=== PATIENT | female | born 1950 | race Caucasian/White ===

== ENCOUNTER 2024-11-10 23:48 | Inpatient (IN) | payer MEDICARE, BC ==
[~2024-11-10] VITALS: Ht 154.9 cm; Wt 51.3 kg
[2024-11-11] MEDS ORDERED: ONDANSETRON ODT 4 MG TAB.RAPDIS ONE (00:13)
[2024-11-11] MEDS: ONDANSETRON ODT 4 MG TAB.RAPDIS SL ONE (00:14)
[2024-11-11 01:09] LABS: BASOPHILS % (AUTO) 0.4 % (0.0-2.0); EOSINOPHILS # (AUTO) 0.1 K/uL (0.0-0.7); EOSINOPHILS % (AUTO) 0.7 % (0.0-7.0); HEMATOCRIT 33.7 % (31.2-41.9); HEMOGLOBIN 11.9 g/dL (10.9-14.3); LYMPHOCYTES % (AUTO) 13.8 % (20.5-51.5); MEAN CORPUSCULAR HEMOGLOBIN 31.5 uug (24.7-32.8); MEAN CORPUSCULAR HGB CONC 35 g/dL (32.3-35.6); MEAN CORPUSCULAR VOLUME 89.5 fL (75.5-95.3); MONOCYTES # (AUTO) 0.6 K/uL (0.1-1.30); MONOCYTES % (AUTO) 7.5 % (0.0-11.0); NEUTROPHILS # (AUTO) 5.8 K/uL (1.8-8.9); NEUTROPHILS % (AUTO) 77.6 % (38.5-71.5); PLATELET COUNT (AUTO) 420 K/uL (179-408); RED BLOOD CELL COUNT(AUTO) 3.76 MIL/uL (3.63-4.92); RED CELL DISTRIBUTION WIDTH 12.9 % (12.3-17.7); WHITE BLOOD COUNT (AUTO) 7.4 K/uL (3.8-11.8)
[2024-11-11 01:25] LABS: ALANINE AMINOTRANSFERASE 17 U/L (14-59); ALBUMIN 3.8 g/dL (3.4-5.0); ALKALINE PHOSPHATASE 80 U/L (50-136); ASPARTATE AMINOTRANSFERASE 10 U/L (15-37); BILIRUBIN,DIRECT 0.2 mg/dL (0.0-0.2); BILIRUBIN,TOTAL 1.2 mg/dL (0.2-1.0); CARBON DIOXIDE 28 mmol/L (21-32); CHLORIDE 96 mmol/L (98-107); CREATININE 0.9 mg/dL (0.6-1.3); GLUCOSE 100 mg/dL (74-106); POTASSIUM 3.6 mmol/L (3.5-5.1); SODIUM SERUM 131 mmol/L (136-145); TOTAL PROTEIN, SERUM 8.1 g/dL (6.4-8.2); UREA NITROGEN, BLOOD 21 mg/dL (7-18)
[2024-11-11] MEDS ORDERED: REMEDY ESSENTIAL ZINC PASTE 113 GM TP PRN (02:15)
[2024-11-11] MEDS ORDERED: MAGNESIUM HYDROXIDE 30 ML LIQUID UDC PO PRN (02:15)
[2024-11-11] MEDS ORDERED: ONDANSETRON 4 MG/2 ML VIAL IV PRN (02:15)
[2024-11-11 07:30] VITALS: BP 113/71; TEMP 97.5; O2SAT 98
[2024-11-11] MEDS: IV NS 1000 ML 1,000 ML IV PRN (07:41)
[2024-11-11] MEDS ORDERED: AMLO2.5T4 PO (09:48)
[2024-11-11] MEDS ORDERED: QUET25TA36 PO (09:48)
[2024-11-11 11:30] VITALS: BP 121/67; TEMP 97.9; O2SAT 98
[2024-11-11] MEDS: ACETAMINOPHEN 325 MG TABLET PO PRN (13:17)
[2024-11-11 15:33] VITALS: BP 127/70; TEMP 97.8; O2SAT 99
[2024-11-11] MEDS ORDERED: [UNRECOGNIZED DRUG - OTHER] PO (17:30)
[2024-11-11] MEDS ORDERED: LEVO125T8 PO (17:30)
[2024-11-11] MEDS ORDERED: [UNRECOGNIZED DRUG - CODE] TD (17:30)
[2024-11-11] MEDS: QUETIAPINE FUMARATE 25 MG TABLET PO SCH ×2 (19:01→21:29)
[2024-11-11 20:00] VITALS: BP 152/73; TEMP 97.4; O2SAT 95
[2024-11-12 00:11] VITALS: BP 124/69; TEMP 97.7; O2SAT 95
[2024-11-12 04:04] VITALS: BP 134/70; TEMP 97.4; O2SAT 97
[2024-11-12 06:43] LABS: BASOPHILS % (AUTO) 0.4 % (0.0-2.0); EOSINOPHILS % (AUTO) 0.8 % (0.0-7.0); LYMPHOCYTES # (AUTO) 0.8 K/uL (0.8-4.8); LYMPHOCYTES % (AUTO) 19.4 % (20.5-51.5); MEAN CORPUSCULAR HEMOGLOBIN 32.3 uug (24.7-32.8); MEAN CORPUSCULAR HGB CONC 36 g/dL (32.3-35.6); MEAN CORPUSCULAR VOLUME 90.2 fL (75.5-95.3); MONOCYTES # (AUTO) 0.5 K/uL (0.1-1.30); MONOCYTES % (AUTO) 10.6 % (0.0-11.0); NEUTROPHILS % (AUTO) 68.8 % (38.5-71.5); PLATELET COUNT (AUTO) 371 K/uL (179-408); RED BLOOD CELL COUNT(AUTO) 3.11 MIL/uL (3.63-4.92); RED CELL DISTRIBUTION WIDTH 12.6 % (12.3-17.7); WHITE BLOOD COUNT (AUTO) 4.3 K/uL (3.8-11.8)
[2024-11-12 07:08] LABS: CALCIUM 7.6 mg/dL (8.5-10.1); CARBON DIOXIDE 24 mmol/L (21-32); CHLORIDE 105 mmol/L (98-107); CREATININE 0.7 mg/dL (0.6-1.3); GLUCOSE 88 mg/dL (74-106); MAGNESIUM 1.6 mg/dL (1.8-2.4); PHOSPHOROUS 2.6 mg/dL (2.5-4.9); POTASSIUM 3.4 mmol/L (3.5-5.1); SODIUM SERUM 138 mmol/L (136-145); UREA NITROGEN, BLOOD 11 mg/dL (7-18)
[2024-11-12 07:21] LABS: DIFFERENTIAL COMMENT 1
[2024-11-12 07:52] LABS: *BILIRUBIN,URIN NEGATIVE (NEGATIVE); *BLOOD, URINE NEGATIVE (NEGATIVE); *CLARITY,URINE CLEAR (CLEAR); *COLOR,URINE YELLOW (YELLOW); *KETONES,URINE 1+ (NEGATIVE); *PROTEIN,URINE NEGATIVE (NEGATIVE); *UROBILINOGEN,URINE 0.2 E.U./dl (NORMAL); LEUKOCYTE ESTERASE ,URINE NEGATIVE (NEGATIVE); NITRITE, URINE NEGATIVE (NEGATIVE); UGLUCOSE NEGATIVE (NEGATIVE)
[2024-11-12 07:53] LABS: BACTERIA,URINE FEW /HPF (NONE SEEN); SQUAMOUS EPITHELIAL CELL,UR FEW /HPF (NONE SEEN); WBC,URINE 0-3 /HPF (0-3)
[2024-11-12 07:55] VITALS: BP 141/72; TEMP 97.7; O2SAT 96
[2024-11-12 11:06] VITALS: BP 142/72; TEMP 98.7; O2SAT 97
[2024-11-12] MEDS: MAGNESIUM OXIDE 400 MG TABLET PO ONE (11:26)
[2024-11-12] MEDS: POTASSIUM CHLORIDE 20 MEQ TAB.PRT.SR PO ONE (11:26)
[2024-11-12] MEDS: LACTULOSE 20 G/30 ML LIQUID UDC PO ONE (17:16)
[2024-11-12] MEDS: DOCUSATE SODIUM 100 MG CAPSULE PO SCH (17:19)
[2024-11-12] MEDS: MIRALAX 17 GM POWD.PACK PO SCH (17:19)
[2024-11-13 06:00] VITALS: BP 137/78; TEMP 97.6; O2SAT 99
[2024-11-13] MEDS ORDERED: LIOTHYRONINE SODIUM 5 MCG TABLET PO SCH (09:00)
[2024-11-13] MEDS: FAMOTIDINE 20 MG TABLET PO SCH (09:05)
[2024-11-13] MEDS: LEVOTHYROXINE SODIUM 125 MCG TABLET PO SCH (10:57)
[2024-11-13] MEDS: BISACODYL 10 MG SUPP.RECT RC ONE (10:58)
[2024-11-13] MEDS: LIOTHYRONINE PO SCH (11:00)
[2024-11-13] MEDS: [UNRECOGNIZED DRUG - OTHER] PO SCH (11:00)
[2024-11-13] MEDS ORDERED: QUETIAPINE FUMARATE 25 MG TABLET PO SCH (17:00)
[2024-11-14] MEDS ORDERED: AMLODIPINE 2.5 MG TABLET PO SCH (09:00)
[2024-11-14] MEDS ORDERED: QUET25TA PO (12:08)
== END 2024-11-13 15:18 | DRG 641 ==
LOC: ER 23:52 → TELE3 11-11 02:34 → MEDSURG3 11-12 09:50
PROVIDERS: ADMIT Nurse Practitioner Family; ATTEND Internal Medicine
DX: E86.0 Dehydration (principal); F05 Delirium due to known physiological condition; R55 Syncope and collapse; E87.1 Hypo-osmolality and hyponatremia; D75.839 Thrombocytosis, unspecified; Z91.51 Personal history of suicidal behavior; Z91.81 History of falling; F32.A Depression, unspecified; F41.9 Anxiety disorder, unspecified; K59.00 Constipation, unspecified; I10 Essential (primary) hypertension; G89.29 Other chronic pain; F43.10 Post-traumatic stress disorder, unspecified; Z66 Do not resuscitate
CPT/HCPCS: 36415; 71045; 74018; 82746; 83605; 83735; 84100; 84484; 85025; 85730; 93307; 93880; A4663; C1758; G0378; J7040; Q0162

== ENCOUNTER 2024-11-13 15:29 | Inpatient (IN) | payer MEDICARE, BC ==
[~2024-11-13] VITALS: Ht 154.9 cm; Wt 51.3 kg
[~2024-11-13 15:29] MED LIST: AMLO2.5T4 PO; LEVO125T8 PO; QUET25TA36 PO; [UNRECOGNIZED DRUG - CODE] TD; [UNRECOGNIZED DRUG - OTHER] PO
[2024-11-13 19:00] VITALS: BP 137/75; TEMP 98; O2SAT 97
[2024-11-13] MEDS: BLOOD SUGAR DIAGNOSTIC 1 EACH STRIP VI ONE (22:51)
[2024-11-13] MEDS ORDERED: MAG HYDROX/AL HYDROX/SIMETH 30 ML LIQUID UDC PO PRN (23:00)
[2024-11-13] MEDS ORDERED: MAGNESIUM HYDROXIDE 30 ML LIQUID UDC PO PRN (23:00)
[2024-11-13] MEDS ORDERED: LORAZEPAM 1 MG TABLET PO PRN (23:00)
[2024-11-13] MEDS ORDERED: TEMAZEPAM 7.5 MG CAPSULE PO PRN ×2 (23:00)
[2024-11-13] MEDS ORDERED: LORAZEPAM 0.5 MG TABLET PO PRN (23:00)
[2024-11-14] MEDS: QUETIAPINE FUMARATE 25 MG TABLET PO ONE (00:02)
[2024-11-14 07:49] LABS: ALANINE AMINOTRANSFERASE 19 U/L (14-59); ALBUMIN 3.4 g/dL (3.4-5.0); ALKALINE PHOSPHATASE 74 U/L (50-136); ASPARTATE AMINOTRANSFERASE 16 U/L (15-37); BILIRUBIN,DIRECT 0.3 mg/dL (0.0-0.2); BILIRUBIN,TOTAL 1.7 mg/dL (0.2-1.0); CALCIUM 8.9 mg/dL (8.5-10.1); CARBON DIOXIDE 25 mmol/L (21-32); CHLORIDE 96 mmol/L (98-107); CHOLESTEROL 211 mg/dL (<200); CREATININE 0.7 mg/dL (0.6-1.3); GLUCOSE 77 mg/dL (74-106); HDL CHOLESTEROL 72 mg/dL (40-60); POTASSIUM 3.8 mmol/L (3.5-5.1); SODIUM SERUM 131 mmol/L (136-145); TOTAL PROTEIN, SERUM 7.5 g/dL (6.4-8.2); TRIGLYCERIDES 47 MG/DL (30-150); UREA NITROGEN, BLOOD 14 mg/dL (7-18)
[2024-11-14 08:43] VITALS: BP 127/80; TEMP 98.3; O2SAT 100
[2024-11-14 11:07] VITALS: BP 134/71; TEMP 98; O2SAT 100
[2024-11-14] MEDS ORDERED: QUET25TA PO (12:08)
[2024-11-14] MEDS: ACETAMINOPHEN 325 MG TABLET PO PRN (12:30)
[2024-11-14] MEDS: QUETIAPINE FUMARATE 25 MG TABLET PO SCH ×2 (15:41→20:33)
[2024-11-14 16:40] VITALS: BP 127/67; TEMP 98; O2SAT 98
[2024-11-14 19:53] VITALS: BP 139/84; TEMP 97.8; O2SAT 96
[2024-11-15 06:12] VITALS: BP 147/83; TEMP 97.5; O2SAT 96
[2024-11-15 07:28] VITALS: BP 143/88; TEMP 97.8; O2SAT 96
[2024-11-15 08:14] LABS: ALANINE AMINOTRANSFERASE 20 U/L (14-59); ALBUMIN 3.6 g/dL (3.4-5.0); ALKALINE PHOSPHATASE 74 U/L (50-136); ASPARTATE AMINOTRANSFERASE 24 U/L (15-37); BILIRUBIN,TOTAL 1.1 mg/dL (0.2-1.0); CALCIUM 9.1 mg/dL (8.5-10.1); CARBON DIOXIDE 27 mmol/L (21-32); CHLORIDE 99 mmol/L (98-107); CREATININE 0.7 mg/dL (0.6-1.3); GLUCOSE 95 mg/dL (74-106); MAGNESIUM 2.1 mg/dL (1.8-2.4); PHOSPHOROUS 3.3 mg/dL (2.5-4.9); POTASSIUM 3.6 mmol/L (3.5-5.1); SODIUM SERUM 137 mmol/L (136-145); TOTAL PROTEIN, SERUM 7.4 g/dL (6.4-8.2); UREA NITROGEN, BLOOD 16 mg/dL (7-18)
[2024-11-15] MEDS ORDERED: HYDROXYZINE PAMOATE 25 MG CAPSULE PO PRN (10:30)
[2024-11-15 10:55] VITALS: BP 112/75; TEMP 97.8; O2SAT 98
[2024-11-15 14:02] VITALS: BP 177/99; TEMP 98; O2SAT 97
[2024-11-15 14:26] LABS: BASOPHILS % (AUTO) 0.3 % (0.0-2.0); EOSINOPHILS # (AUTO) 0.1 K/uL (0.0-0.7); HEMATOCRIT 33.7 % (31.2-41.9); HEMOGLOBIN 11.3 g/dL (10.9-14.3); LYMPHOCYTES # (AUTO) 1.5 K/uL (0.8-4.8); MEAN CORPUSCULAR HEMOGLOBIN 30.7 uug (24.7-32.8); MEAN CORPUSCULAR HGB CONC 34 g/dL (32.3-35.6); MEAN CORPUSCULAR VOLUME 91.7 fL (75.5-95.3); MONOCYTES # (AUTO) 0.7 K/uL (0.1-1.30); MONOCYTES % (AUTO) 11.7 % (0.0-11.0); NEUTROPHILS # (AUTO) 4.1 K/uL (1.8-8.9); PLATELET COUNT (AUTO) 455 K/uL (179-408); RED BLOOD CELL COUNT(AUTO) 3.67 MIL/uL (3.63-4.92); WHITE BLOOD COUNT (AUTO) 6.4 K/uL (3.8-11.8)
[2024-11-15 14:27] LABS: CALCIUM 9.6 mg/dL (8.5-10.1); CARBON DIOXIDE 29 mmol/L (21-32); CHLORIDE 98 mmol/L (98-107); CREATININE 0.7 mg/dL (0.6-1.3); GLUCOSE 112 mg/dL (74-106); POTASSIUM 3.8 mmol/L (3.5-5.1); SODIUM SERUM 134 mmol/L (136-145); UREA NITROGEN, BLOOD 17 mg/dL (7-18)
[2024-11-15] MEDS ORDERED: CELLULOSE,OXIDIZED 2x3 MC ONE (14:36)
[2024-11-15] MEDS ORDERED: IOHEXOL 350 100 ML INFUS..BTL ONE (14:37)
[2024-11-15] MEDS ORDERED: SWABABLE VALVE TRANSFER SET EA MC ONE (14:37)
[2024-11-15 15:15] VITALS: BP 145/100; TEMP 97.8; O2SAT 96
[2024-11-15] MEDS: ASPIRIN 325 MG TABLET PO ONE (15:20)
[2024-11-15] MEDS: LEVOTHYROXINE SODIUM 125 MCG TABLET PO SCH (17:24)
[2024-11-15] MEDS: AMLODIPINE 2.5 MG TABLET PO SCH (17:24)
[2024-11-15] MEDS: LIOTHYRONINE PO SCH (17:31)
[2024-11-15] MEDS: [UNRECOGNIZED DRUG - OTHER] PO SCH (17:31)
[2024-11-15 18:23] VITALS: BP 135/80; TEMP 98; O2SAT 96
[2024-11-15] MEDS: ATORVASTATIN 40 MG TABLET PO SCH (20:46)
[2024-11-16] MEDS ORDERED: ASPIRIN 81 MG TAB.CHEW PO SCH (09:00)
[2024-11-16] MEDS ORDERED: LIOTHYRONINE PO SCH (09:00)
[2024-11-16] MEDS ORDERED: ASPI-1169 PO (16:09)
[2024-11-16] MEDS ORDERED: ATOR80TA PO (16:09)
== END 2024-11-15 21:07 | disposition short-term general hospital (02) | DRG 880 ==
LOC: GPSOV3 15:29
PROVIDERS: ADMIT Psychiatry & Neurology Psychosomatic Medicine; ATTEND Internal Medicine
DX: F41.9 Anxiety disorder, unspecified (principal); E87.1 Hypo-osmolality and hyponatremia; I10 Essential (primary) hypertension; F60.9 Personality disorder, unspecified; F32.9 Major depressive disorder, single episode, unspecified; F43.10 Post-traumatic stress disorder, unspecified; R53.1 Weakness; Z91.51 Personal history of suicidal behavior; Z79.899 Other long term (current) drug therapy; Z91.81 History of falling; R41.89 Other symptoms and signs involving cognitive functions and awareness; D75.839 Thrombocytosis, unspecified; R27.0 Ataxia, unspecified
CPT/HCPCS: 36415; 70450; 70496; 71045; 83735; 84100; 84484; 85025; 85730; 93005; A4663; Q9967

== ENCOUNTER 2024-11-15 21:34 | Inpatient (IN) | payer MEDICARE, BC ==
[~2024-11-15] VITALS: Ht 154.9 cm; Wt 51.3 kg
[2024-11-15 19:30] VITALS: BP 151/91; TEMP 97.1; O2SAT 97
[~2024-11-15 21:34] MED LIST changes: +QUET25TA PO
[2024-11-15 22:03] VITALS: BP 151/91; TEMP 97.1; O2SAT 97
[2024-11-15] MEDS ORDERED: ACETAMINOPHEN 325 MG TABLET PO PRN (23:30)
[2024-11-15] MEDS ORDERED: ONDANSETRON 4 MG/2 ML VIAL IV PRN (23:30)
[2024-11-15] MEDS ORDERED: hydrALAZINE HCL 20 MG/1 ML VIAL IV PRN (23:30)
[2024-11-15] MEDS ORDERED: MORPHINE SULFATE 2 MG/1 ML DISP.SYRIN IVP PRN (23:30)
[2024-11-16] MEDS: IV NS 1000 ML 1,000 ML IV PRN (00:20)
[2024-11-16 03:52] VITALS: BP 107/58; TEMP 97.1; O2SAT 99
[2024-11-16 07:31] LABS: BASOPHILS % (AUTO) 0.4 % (0.0-2.0); EOSINOPHILS # (AUTO) 0.1 K/uL (0.0-0.7); EOSINOPHILS % (AUTO) 1.9 % (0.0-7.0); HEMATOCRIT 31.4 % (31.2-41.9); LYMPHOCYTES # (AUTO) 0.7 K/uL (0.8-4.8); LYMPHOCYTES % (AUTO) 16.1 % (20.5-51.5); MEAN CORPUSCULAR HEMOGLOBIN 31.7 uug (24.7-32.8); MEAN CORPUSCULAR HGB CONC 35 g/dL (32.3-35.6); MEAN CORPUSCULAR VOLUME 90.3 fL (75.5-95.3); MONOCYTES # (AUTO) 0.5 K/uL (0.1-1.30); MONOCYTES % (AUTO) 10.8 % (0.0-11.0); NEUTROPHILS % (AUTO) 70.8 % (38.5-71.5); PLATELET COUNT (AUTO) 456 K/uL (179-408); RED BLOOD CELL COUNT(AUTO) 3.48 MIL/uL (3.63-4.92); WHITE BLOOD COUNT (AUTO) 4.2 K/uL (3.8-11.8)
[2024-11-16 07:34] VITALS: BP 132/90; TEMP 98; O2SAT 95
[2024-11-16 07:47] LABS: DIFFERENTIAL COMMENT 1
[2024-11-16 07:57] LABS: ALANINE AMINOTRANSFERASE 23 U/L (14-59); ALBUMIN 3.3 g/dL (3.4-5.0); ALKALINE PHOSPHATASE 69 U/L (50-136); ASPARTATE AMINOTRANSFERASE 22 U/L (15-37); CALCIUM 8.8 mg/dL (8.5-10.1); CARBON DIOXIDE 27 mmol/L (21-32); CHLORIDE 100 mmol/L (98-107); CREATININE 0.6 mg/dL (0.6-1.3); GLUCOSE 89 mg/dL (74-106); PHOSPHOROUS 3.1 mg/dL (2.5-4.9); POTASSIUM 3.1 mmol/L (3.5-5.1); SODIUM SERUM 136 mmol/L (136-145); TOTAL PROTEIN, SERUM 7.1 g/dL (6.4-8.2); UREA NITROGEN, BLOOD 13 mg/dL (7-18)
[2024-11-16] MEDS: HEPARIN SODIUM,PORCINE 5,000 UNITS/ML VIAL SQ SCH (09:00)
[2024-11-16] MEDS: ASPIRIN 81 MG TAB.CHEW PO SCH (11:51)
[2024-11-16] MEDS: POTASSIUM CHLORIDE 20 MEQ TAB.PRT.SR PO SCH (13:37)
[2024-11-16] MEDS: QUETIAPINE FUMARATE 25 MG TABLET PO PRN (15:52)
[2024-11-16] MEDS: LEVOTHYROXINE SODIUM 125 MCG TABLET PO SCH (16:07)
[2024-11-16] MEDS: LIOTHYRONINE PO SCH (16:08)
[2024-11-16] MEDS ORDERED: ATOR80TA PO (16:09)
[2024-11-16] MEDS ORDERED: ASPI-1169 PO (16:09)
[2024-11-16] MEDS ORDERED: LIOTHYRONINE PO SCH (17:00)
[2024-11-16] MEDS ORDERED: QUETIAPINE FUMARATE 25 MG TABLET PO SCH ×2 (17:00→21:00)
[2024-11-16] MEDS ORDERED: CEFTRIAXONE 1 G VIAL IV SCH (18:45)
[2024-11-16 21:38] VITALS: BP 167/77; TEMP 98.7; O2SAT 98
[2024-11-16] MEDS ORDERED: MAGNESIUM HYDROXIDE 30 ML LIQUID UDC PO PRN (22:45)
[2024-11-16] MEDS: DOCUSATE SODIUM 250 MG CAPSULE PO SCH (22:52)
[2024-11-16] MEDS: MIRALAX 17 GM POWD.PACK PO SCH (22:52)
[2024-11-17] VITALS: BP 143/79; TEMP 98.2; O2SAT 97
[2024-11-17] MEDS: HYDROXYZINE PAMOATE 25 MG CAPSULE PO PRN (00:56)
[2024-11-17 07:19] LABS: CALCIUM 8.9 mg/dL (8.5-10.1); CARBON DIOXIDE 26 mmol/L (21-32); CHLORIDE 99 mmol/L (98-107); CREATININE 0.6 mg/dL (0.6-1.3); GLUCOSE 94 mg/dL (74-106); POTASSIUM 3.8 mmol/L (3.5-5.1); SODIUM SERUM 133 mmol/L (136-145); UREA NITROGEN, BLOOD 9 mg/dL (7-18)
[2024-11-17] MEDS: AMLODIPINE 2.5 MG TABLET PO SCH (08:36)
[2024-11-17] MEDS: QUETIAPINE FUMARATE 25 MG TABLET PO ONE (09:41)
[2024-11-17 11:35] VITALS: BP 133/79; TEMP 97.6; O2SAT 96
[2024-11-17 14:36] VITALS: BP 139/73; TEMP 97.6; O2SAT 97
[2024-11-17 15:33] LABS: THYROID STIMULATING HORMONE 1.036 mIU/mL (0.358-3.740)
[2024-11-17] MEDS: SODIUM CHLORIDE 1,000 MG TABLET PO SCH (15:45)
[2024-11-17 19:30] VITALS: BP 147/80; TEMP 97.1; O2SAT 99
[2024-11-17] MEDS: QUETIAPINE FUMARATE 25 MG TABLET PO SCH (20:32)
[2024-11-18] VITALS: BP 116/81; TEMP 97.7; O2SAT 97
[2024-11-18 01:08] LABS: *BILIRUBIN,URIN NEGATIVE (NEGATIVE); *BLOOD, URINE NEGATIVE (NEGATIVE); *CLARITY,URINE CLEAR (CLEAR); *COLOR,URINE YELLOW (YELLOW); *KETONES,URINE NEGATIVE (NEGATIVE); *PROTEIN,URINE NEGATIVE (NEGATIVE); *UROBILINOGEN,URINE 0.2 E.U./dl (NORMAL); LEUKOCYTE ESTERASE ,URINE NEGATIVE (NEGATIVE); NITRITE, URINE NEGATIVE (NEGATIVE); UGLUCOSE NEGATIVE (NEGATIVE)
[2024-11-18 07:01] LABS: CALCIUM 8.9 mg/dL (8.5-10.1); CARBON DIOXIDE 24 mmol/L (21-32); CHLORIDE 99 mmol/L (98-107); CREATININE 0.6 mg/dL (0.6-1.3); GLUCOSE 90 mg/dL (74-106); SODIUM SERUM 133 mmol/L (136-145); UREA NITROGEN, BLOOD 10 mg/dL (7-18)
[2024-11-18 07:02] LABS: MAGNESIUM 1.8 mg/dL (1.8-2.4); PHOSPHOROUS 3.8 mg/dL (2.5-4.9)
[2024-11-18 07:32] VITALS: BP 165/85; TEMP 98; O2SAT 98
[2024-11-18] MEDS ORDERED: SODI100010 PO (11:08)
[2024-11-18 12:00] VITALS: BP 139/76; O2SAT 97
[2024-11-18 12:01] VITALS: BP 137/92; O2SAT 97
[2024-11-18 12:02] VITALS: BP 127/80; O2SAT 97
[2024-11-18 16:00] VITALS: BP 128/75; TEMP 97.6; O2SAT 97
== END 2024-11-18 18:05 | disposition home health service (06) | DRG 312 ==
LOC: TELE3 21:34
PROVIDERS: ADMIT Internal Medicine; ATTEND Internal Medicine
DX: R55 Syncope and collapse (principal); F23 Brief psychotic disorder; E22.2 Syndrome of inappropriate secretion of antidiuretic hormone; G93.40 Encephalopathy, unspecified; F41.9 Anxiety disorder, unspecified; E87.79 Other fluid overload; D75.839 Thrombocytosis, unspecified; E87.6 Hypokalemia; F43.10 Post-traumatic stress disorder, unspecified; Z91.81 History of falling; F32.A Depression, unspecified; I10 Essential (primary) hypertension; R27.8 Other lack of coordination; G31.84 Mild cognitive impairment of uncertain or unknown etiology
CPT/HCPCS: 36415; 83735; 83921; 84100; 84443; 84550; 85025; 95819; A4663; G0378; J1644; J7040